=== PATIENT | female | born 1955 | race Caucasian/White ===

== ENCOUNTER 2024-01-18 08:03 | Outpatient (OUT) | payer MEDICARE, SELFPAY ==
[2024-01-18 08:28] LABS: Basophils Percent Auto 0.4 % (0.2-2.0); Eosinophils Absolute Auto 0.1 10^3/uL (0.0-0.7); Eosinophils Percent Auto 2.4 % (0.9-7.0); Hematocrit 41.5 % (36.0-48.0); Hemoglobin 13.3 g/dL (12.0-16.0); Immature Granulocytes Abs Auto 0.01 10^3/uL (0.00-0.03); Immature Granulocytes Pct Auto 0.2 % (0.0-0.5); Lymphocytes Absolute Auto 2.3 10^3/uL (1.2-3.8); Mean Corpuscular Hemoglobin 27.8 pg (26.7-34.0); Mean Corpuscular Volume 86.8 fL (81.0-99.0); Mean Platelet Volume 8.9 fL (9.5-13.5); Monocytes Absolute Auto 0.5 10^3/uL (0.3-0.8); Monocytes Percent Auto 9.2 % (1.7-12.0); Neutrophils Absolute Auto 2.1 10^3/uL (1.4-6.5); Neutrophils Percent Auto 41.8 % (43.0-75.0); Platelet Count 293 10^3/uL (150-450); Red Blood Count 4.78 10^6/uL (4.20-5.40); Red Cell Distribution Width 13.5 % (11.0-15.0)
--- NOTE | 2024-01-18 08:29 | MM_ITS ---
Patient Name: GABBIE LOPEZ MR#: [id number] : 1955 Exam Date: 01/18/2024 Ordering Doctor: DR Lupe Ramos M.D. RADIOLOGY REPORT PROCEDURE: MM TOMOSYNTHESIS SCREENING BI COMPARISON: MG MAMM SCREEN 3D NEY CAD, 01/15/2023. MG MAMM DX 3D RT CAD, 08/28/2021. INDICATIONS: Screening Calculator Name NCI Breast Cancer Risk Assessment Tool 5 Year Breast Cancer Risk 2.10% Lifetime Breast Cancer Risk 6.90% Personal Breast Cancer No Personal Ovarian Cancer No Treatments None Family Cancers Brother with prostate cancer at age ~45; Brother with prostate cancer at age ~45; Brother with prostate cancer at age ~45. LOCATION: [facility] BREAST COMPOSITION: The breasts are heterogeneously dense,which may obscure small masses. FINDINGS: DIAGNOSTIC CATEGORY 0--INCOMPLETE: NEED ADDITIONAL IMAGING EVALUATION. The breasts are stable in size and overall fibroglandular configuration. Scattered benign-appearing calcifications are present. Scattered benign-appearing lymph nodes are present. RIGHT BREAST: New 1.4 x 0.8 cm ill-defined nodular density upper outer quadrant, 9 o'clock position spot imaging and ultrasound follow-up recommended. LEFT BREAST: 3 new ill-defined focal nodules upper outer quadrant measuring 1.1, 1.6 and 0.7 cm in size. Spot imaging and ultrasound follow-up is recommended. RECOMMENDATIONS: ADDITIONAL MAMMOGRAPHIC VIEWS REQUIRED: BILATERAL BREASTS - spot compression views ULTRASOUND: BILATERAL BREASTS PLEASE NOTE: A NORMAL MAMMOGRAM DOES NOT EXCLUDE THE POSSIBILITY OF BREAST CANCER. A CLINICALLY SUSPICIOUS PALPABLE LUMP SHOULD BE BIOPSIED. Dictated by: Brian Regalado MD on 01/18/2024 at 11:17 Approved by: Brian Regalado MD on 01/18/2024 at 11:20
--- NOTE | 2024-01-18 08:29 | XR_ITS ---
[address] [address] Patient Name: GABBIE LOPEZ MRN: [id number] date: 1955 Sex: F Assigned Patient Location: [facility] Current Patient Location: [facility] Accession/Order Number: [id number] Exam Date: 01/18/2024 08:49 Report Date: 01/18/2024 09:21 At the request of: KENNETH FARIAS Procedure: XR DEXA axial skeleton EXAMINATION: XR DEXA axial skeleton, 01/18/2024 8:49 AM EDT HISTORY: Osteoporosis M81.0 COMPARISON: None. TECHNIQUE: Dual-energy X-ray absorptiometry (DEXA) bone density study performed for the axial skeleton. HISTORY: Osteoporosis M81.0 FINDINGS: Bone mineral density AP spine L1-L4 measures 0.779 g/sq cm. T score -3.3. WHO classification: Osteoporosis. Bone mineral density of the bilateral total femurs measures 0.719 g/sq cm. T score -2.3. WHO classification: Osteopenia XR/XR DEXA axial skeleton IMPRESSION: Osteoporosis. High fracture risk Electronically authenticated by: JUAN JOSE FERNANDEZ Date: 01/18/2024 09:21
[2024-01-18 09:07] LABS: Alanine Aminotransferase 43 U/L (14-59); Albumin Level 3.6 g/dL (3.4-5.0); Alkaline Phosphatase 74 U/L (46-116); Anion Gap 12.8; Aspartate Amino Transferase 29 U/L (15-37); BUN Creatinine Ratio 15.8; Calcium 9.3 mg/dL (8.5-10.1); Carbon Dioxide 28.1 mmol/L (21.0-32.0); Chloride 104 mmol/L (98-107); Cholesterol 198 mg/dL (<=200); Estimated GFR (African America >60 (>=60); Estimated GFR (Non-African Ame 58 (>=60); Globulin 3.5 g/dL; Glucose 100 mg/dL (74-106); HDL Cholesterol 67 mg/dL (40-60); Potassium 3.9 mmol/L (3.5-5.1); Sodium 141 mmol/L (136-145); Total Protein 7.1 g/dL (6.4-8.2); Triglycerides 193 mg/dL (<=150); VLDL CHOLESTEROL 38.6 mg/dL
== END 2024-01-18 08:04 | disposition home or self-care (01) ==
LOC: MAMMO 08:03
PROVIDERS: PCP Family Medicine; Visit Provider Family Medicine
DX: Z12.31 Encounter for screening mammogram for malignant neoplasm of breast (principal); M81.0 Age-related osteoporosis without current pathological fracture; E78.5 Hyperlipidemia, unspecified; Z80.42 Family history of malignant neoplasm of prostate; N63.21 Unspecified lump in the left breast, upper outer quadrant; N63.11 Unspecified lump in the right breast, upper outer quadrant
CPT/HCPCS: 36415; 77063; 77067; 77080; 80053; 80061; 85025

== ENCOUNTER 2024-02-05 09:28 | Outpatient (OUT) | payer MEDICARE, SELFPAY ==
--- NOTE | 2024-02-05 09:32 | MM_ITS ---
Patient Name: GABBIE LOPEZ MR#: [id number] : 1955 Exam Date: 02/05/2024 Ordering Doctor: DR Lupe Ramos M.D. RADIOLOGY REPORT PROCEDURE: MM DIAGNOSTIC MAMMO BI, 02/05/2024, 09:39 US BREAST BI LIMITED, 02/05/2024, 10:01 COMPARISON: MM TOMOSYNTHESIS SCREENING BI, 01/18/2024. MG MAMM SCREEN 3D NEY CAD, 01/15/2023. MG MAMM DX 3D RT CAD, 08/28/2021. MG MAMM SCREEN 3D NEY CAD, 07/22/2021. INDICATIONS: Abnormal mammogram R92.8 Calculator Name NCI Breast Cancer Risk Assessment Tool 5 Year Breast Cancer Risk 2.10% Lifetime Breast Cancer Risk 6.90% Personal Breast Cancer No Personal Ovarian Cancer No Treatments None Family Cancers Brother with prostate cancer at age ~45; Brother with prostate cancer at age ~45; Brother with prostate cancer at age ~45. LOCATION: [facility] BREAST COMPOSITION: The breasts are heterogeneously dense,which may obscure small masses. FINDINGS: DIAGNOSTIC CATEGORY 3--PROBABLY BENIGN FINDING. THE FOLLOWING FINDING(S) HAS A HIGH PROBABILITY OF A BENIGN ETIOLOGY: RIGHT BREAST: Spot magnification views demonstrate very subtle opacity within posterior lower-outer quadrant. No specific ultrasound findings. Incidental small lymph node. Follow-up diagnostic mammography and right breast ultrasound in 6 months is recommended to document stability. LEFT BREAST: Spot magnification views demonstrate very subtle opacities within upper-outer quadrant. No specific ultrasound findings. Follow-up diagnostic mammography and right breast ultrasound in 6 months is recommended to document stability. RECOMMENDATIONS: SHORT TERM FOLLOW-UP DIAGNOSTIC MAMMOGRAM BILATERAL BREASTS IN 6 MONTHS. SHORT TERM FOLLOW-UP ULTRASOUND BILATERAL BREASTS IN 6 MONTHS. PLEASE NOTE: A NORMAL MAMMOGRAM DOES NOT EXCLUDE THE POSSIBILITY OF BREAST CANCER. A CLINICALLY SUSPICIOUS PALPABLE LUMP SHOULD BE BIOPSIED. Dictated by: Medardo Chavez M.D. on 02/05/2024 at 10:21 Approved by: Medardo Chavez M.D. on 02/05/2024 at 10:50
== END 2024-02-05 09:29 | disposition home or self-care (01) ==
LOC: MAMMO 09:28
PROVIDERS: PCP Family Medicine; Visit Provider Family Medicine
DX: R92.8 Other abnormal and inconclusive findings on diagnostic imaging of breast (principal); Z80.42 Family history of malignant neoplasm of prostate
CPT/HCPCS: 76642; 77066

== ENCOUNTER 2024-08-17 07:42 | Outpatient (OUT) | payer MEDICARE, SELFPAY ==
--- OUTSIDE RECORDS SUMMARY | 2024-08-17 07:43 | XMS_ITS | CCD ---
Author Organization [facility] Care Team Providers Care Quality Assurance Specialist Name Role Phone DR LUPE RAMOS Admitting Unavailable JARRETT, DR LUPE Todd Attending Unavailable DR MEDARDO CHAVEZ Consulting Unavailable JARRETT, DR LUPE Todd Consulting Unavailable Jeannine Rosales Unavailable Lupe Ramos Unavailable Asaad, Imad Unavailable Lupe Ramos Primary Care Unavailable Asaad, Imad Attending Unavailable Asaad, Imad Admitting Unavailable Medications Current Medications Medication Drug Class(es) Dates Sig (Normalized) Sig (Original) atorvastatin 20 mg oral tablet (6 sources) HMG-CoA Reductase Inhibitor Start: 08-27-2022 take 1 tablet by mouth every twenty-four hours Atorvastatin Calcium 20 MG 1 tablet Orally Once a day for 90 days January, Active buPROPion hydrochloride 100 mg oral tablet (6 sources) Aminoketone Start: 08-27-2022 take 1 tablet by mouth twice daily buPROPion HCl 100mg buPROPion HCL 100mg, 1 tablet two times daily # 180, 08/27/2022, Ref. x1. Active oral two times daily for 0 *Pick strength-form from [place] [employer] for eRX* Jul, Active fluconazole 150 mg oral tablet (1 source) Azole Antifungal Start: 07-24-2023 take 1 tablet by mouth at mealtime, then take 1 tablet by mouth at mealtime Diflucan 150 MG 1 tablet Orally once for 2 days Take the first tablet today by mouth with food, take the second tablet in 3 days with food. Jun, Active ibandronic acid 150 mg oral tablet (6 sources) Bisphosphonate Start: 02-24-2023 take 1 tablet by mouth once daily Ibandronate Sodium 150 MG 1 tablet 60 minutes before the first food, beverage or medicine of the day with plain water Orally for 90 days January, Active Start: 08-27-2022 take 1 tablet by emily th every month ibandronate 150mg ibandronate 150mg, 1 tablet monthly # 3, 08/27/2022, Ref. x1. Active oral monthly for 0 *Reorder from [place] [employer] for eRx and Interaction Alerts* Jul, Active omeprazole 40 mg delayed release oral capsule (2 sources) Proton Pump Inhibitor take 1 capsule by mouth once daily Omeprazole 40 MG 1 capsule 30 minutes before morning meal Orally Once a day for 15 days Active Problems Problem Classification Problem Date Documented Date Episodic/Chronic Abdominal pain (2 sources) Right upper quadrant pain; Translations: [Left upper quadrant pain] Episodic Disorders of lipid metabolism (15 sources) Hyperlipidemia, unspecified; Translations: [Hyperlipidemia] Onset: 01-15-2023 Chronic Miscellaneous mental health disorders (5 sources) Emotional state finding; Translations: [Other symptoms and signs involving emotional state] Episodic Osteoporosis (11 sources) Osteoporosis; Translations: [Age-related osteoporosis without current pathological fracture] Chronic Other and unspecified benign neoplasm (1 source) Polyp of colon Episodic Other female genital disorders (1 source) Other specified noninflammatory disorders of vagina Episodic Other screening for suspected conditions (not mental disorders or infectious disease) (2 sources) Encounter for screening mammogram for malignant neoplasm of breast; Translations: [ENC SCR MAMMO MALIG NEOPLASM BREAST] Onset: 01-19-2023 Episodic Other upper respiratory infections (2 sources) Acute pharyngitis, unspecified Episodic Residual codes; unclassified (1 source) Family history of malignant neoplasm of other organs or systems; Translations: [FAM HX MALIG NEOPLASM OTH ORGN/SYS] Onset: 01-19-2023 Episodic Residual codes; unclassified (5 sources) Tobacco user; Translations: [Tobacco use] Episodic Residual codes; unclassified (5 sources) Normal body mass index; Translations: [Body mass index (BMI) 24.0-24.9, adult] Episodic Unclassified (1 source) Encounter for screening for malignant neoplasm of colon; Translations: [Encounter for screening for malignant neoplasm of colon] Onset: 12-07-2023 Results Test Name Value Interpretation Reference Range Facility [facility] 12-07-2023 L Specimen: [id number] Received: 12/07/23 Status: KAREN Arreaga Num: [id number] Spec Type: Surgical Subm Dr: Phoenix Ortiz MD Tissues: A Colon Biopsy (ASC POLYP) B Colon Biopsy (CECAL POLYP) C Colon Biopsy (SIGMOID POLYPS) Procedures: HE/8, Gross/Micro L4/3 Age/ Patient Sex Location Account Attending Physician JuanGabbie 68/F [id number] Phoenix Ortiz MD SPEC NUM: [id number] RECD: 12/07/23 STATUS: KAREN ARREAGA NUM: [id number] TAYO: 12/07/23- SUBM DR: Phoenix Ortiz MD ENTERED: 12/07/23 [facility] DR: SPEC TYPE: Surgical DEPT: S ORDERED: HE/8, Gross/Micro L4/3 ORDERED: HE/8, Gross/Micro L4/3 Pathological Diagnosis A. Ascending colon, biopsies: - Tubular adenoma with no high-grade dysplasia. B. Cecal polyp, biopsies: - Tubular adenoma with no high-grade dysplasia. C. Sigmoid polyp, biopsies: - Tubular adenoma with no high-grade dysplasia. Clinical Information History of polyps Gross Description A. Received in formalin labeled with the patient's name, date of and ascending colon are three monroy tissues averaging 0.4 x 0.3 x 0.2 cm, admixed with fecal material. Entirely submitted in one cassette labeled A1. B. Received in formalin labeled with the patient's name, date of and cecal polyp is one monroy tissue measuring 0.3 x 0.3 x 0.2 cm. Entirely submitted in one cassette labeled B1. C. Received in formalin labeled with the patient's name, date of and sigmoid polyp Specimen: [id number] Received: 12/07/23 Status: KAREN Arreaga Num: [id number] Spec Type: Surgical Subm Dr: Phoenix Ortiz MD Tissues: A Colon Biopsy (ASC POLYP) B Colon Biopsy (CECAL POLYP) C Colon Biopsy (SIGMOID POLYPS) Procedures: VICENTELeslie Graham/Micro L4/3 Patient: Gabbie Lopez [id number] (Continued) Specimen: [id number] Received: 12/07/23 (Continued) Gross Description (Continued) Signed (signature on file) Tere Islas MD 12/08/23 1135 Specimen: [id number] Received: 12/07/23 Status: KAREN Arreaga Num: [id number] Spec Type: Surgical Subm Dr: Phoenix Ortiz MD Tissues: A Colon Biopsy (ASC POLYP) B Colon Biopsy (CECAL POLYP) C Colon Biopsy (SIGMOID POLYPS) Procedures: VICENTELeslie Graham/Micro L4/3 Patient: Gabbie Lopez [id number] (Continued) Specimen: [id number] Received: 12/07/23 (Continued) Gross Description (Continued) are two monroy tissues measuring 0.6 x 0.5 x 0.3 cm and 1.1 x 0.9 x 0.4 cm, admixed with fecal material. Entirely submitted in one cassette labeled C1. Microscopic Description Microscopic evaluation supports the above rendered diagnosis. CPT Codes 20507n5 Specimen: [id number] Received: 12/07/23 Status: KAREN Arreaga Num: [id number] Spec Type: Surgical Subm Dr: Phoenix Ortiz MD Tissues: A Colon Biopsy (ASC POLYP) B Colon Biopsy (CECAL POLYP) C Colon Biopsy (SIGMOID POLYPS) Procedures: HE/8, Gross/Micro L4/3 Patient: Gabbie Lopez [id number] (Continued) Signed (signature on file) Tere Islas MD 12/08/23 1135 Normal [facility] [employer] 07-24-2023 S. pyogenes Org specific cx Ql (Throat) Negative [employer] Other [employer] [facility] [employer] Other CBC AUTO DIFFon 01-15-2023 BASO # 0.0 103/ul Normal 0.0-0.1 [facility] Comment on above: Performed By: #### C BC #### [facility] [address] [place] [address] Dr. Pete Sibley Basophils/100 WBC (Bld) 0.4 % Normal 0.2-2.0 [facility] Comment on above: Performed By: #### C BC #### [facility] [address] [place] [address] Dr. Pete Sibley EO # 0.2 103/ul Normal 0.0-0.7 [facility] Comment on above: Performed By: #### C BC #### [facility] [address] [place] [address] Dr. Pete Sibley Eosinophils/100 WBC (Bld) 3.5 % Normal 0.9-7.0 [facility] Comment on above: Performed By: #### C BC #### [facility] [address] [place] [address] Dr. Pete Sibley Erythrocyte distribution width (RBC) [Ratio] 14.1 % Normal 11.0-15.0 [facility] Comment on above: Performed By: #### C BC #### [facility] [address] [place] [address] Dr. Pete Sibley Hematocrit (Bld) [Volume fraction] 42.6 % Normal 36.0-48.0 [facility] Comment on above: Performed By: #### C BC #### [facility] [address] [place] [address] Dr. Pete Sibley Hemoglobin (Bld) [Mass/Vol] 13.7 g/dL Normal 12.0-16.0 [facility] Comment on above: Performed By: #### C BC #### [facility] [address] [place] [address] Dr. Pete Sibley IG # 0.01 10e3/ul Normal 0.00-0.03 [facility] Comment on above: Performed By: #### C BC #### [facility] [address] [place] [address] Dr. Pete Sibley IG % 0.2 % Normal 0.0-0.5 [facility] Comment on above: Performed By: #### C BC #### [facility] [address] [place] [address] Dr. Pete Sibley LYMPH # 1.6 103/ul Normal 1.2-3.8 [facility] Comment on above: Performed By: #### C BC #### [facility] [address] [place] [address] Dr. Pete Sibley Lymphocytes/100 WBC (Bld) 32.2 % Normal 20.5-60.0 [facility] Comment on above: Performed By: #### C BC #### [facility] [address] [place] [address] Dr. Pete Sibley MANUAL DIFF REQ NO Normal [facility] Comment on above: Performed By: #### C BC #### [facility] [address] [place] [address] Dr. Pete Sibley MCH (RBC) [Entitic mass] 28.1 pg Normal 26.7-34.0 [facility] Comment on above: Performed By: #### C BC #### [facility] [address] [place] [address] Dr. Pete Sibley MCHC (RBC) [Mass/Vol] 32.2 g/dL Normal 29.9-35.2 [facility] Comment on above: Performed By: #### C BC #### [facility] [address] [place] [address] Dr. Pete Sibley MCV (RBC) [Entitic vol] 87.5 fL Normal 81.0-99.0 [facility] Comment on above: Performed By: #### C BC #### [facility] [address] [place] [address] Dr. Pete Sibley MONO # 0.4 103/ul Normal 0.3-0.8 [facility] Comment on above: Performed By: #### C BC #### [facility] [address] [place] [address] Dr. Pete Sibley Monocytes/100 WBC (Bld) 8.2 % Normal 1.7-12.0 [facility] Comment on above: Performed By: #### C BC #### [facility] [address] [place] [address] Dr. Pete Sibley NEUT # 2.7 103/ul Normal 1.4-6.5 [facility] Comment on above: Performed By: #### C BC #### [facility] [address] [place] [address] Dr. Pete Sibley Neutrophils/100 WBC (Bld) 55.5 % Normal 43.0-75.0 [facility] Comment on above: Performed By: #### C BC #### [facility] [address] [place] [address] Dr. Pete Sibley Platelet mean volume (Bld) [Entitic vol] 8.8 fL Critically low 9.5-13.5 [facility] Comment on above: Performed By: #### C BC #### [facility] [address] [place] [address] Dr. Pete Sibley PLT 294 103/ul Normal 150-450 [facility] Comment on above: Performed By: #### C BC #### [facility] [address] [place] [address] Dr. Pete Sibley RBC 4.87 106/ul Normal 4.20-5.40 [facility] Comment on above: Performed By: #### C BC #### [facility] [address] [place] [address] Dr. Pete Sibley WBC 4.9 103/ul Normal 4.0-11.0 [facility] Comment on above: Performed By: #### C BC #### [facility] [address] [place] [address] Dr. Pete Sibley LIPID PROFILEon 01-15-2023 CHOL-HDL RATIO NORM SEE BELOW Normal [facility] Comment on above: Result Comment: 3.3 - 4.4 LOW RISK 4.4 - 7.1 AVERAGE RISK 7.1 - 11.0 MODERATE RISK >11.0 HIGH RISK Performed By: #### L IPID, CMP #### [facility] [address] [place] [address] Dr. Pete Sibley Cholesterol [Mass/Vol] 166 mg/dL Normal <=200 [facility] Comment on above: Performed By: #### L IPID, CMP #### [facility] [address] [place] [address] Dr. Pete Sibley Cholesterol in HDL [Mass/Vol] 72 mg/dL Critically high 40-60 The [facility] Comment on above: Performed By: #### L IPID, CMP #### [facility] [address] [place] [address] Dr. Pete Sibley Cholesterol in LDL [Mass/Vol] 74.6 mg/dL Normal [facility] Comment on above: Performed By: #### L IPID, CMP #### [facility] [address] [address] [address] Pete Sibley Cholesterol.total/ Cholesterol in HDL [Mass ratio] 2.3 {ratio} Normal [facility] Comment on above: Performed By: #### L IPID, CMP #### [facility] [address] [address] [address] Pete Sibley HDL NORMAL > or = 60 mg/dl - LOW CARDIOVASCULAR RISK <40 mg/dl - HIGH CARDIOVASCULAR RISK Normal [facility] Comment on above: Performed By: #### L IPID, CMP #### [facility] [address] [address] [address] Pete Sibley LDL CALC NORMAL SEE BELOW Normal [facility] Comment on above: Result Comment: <100 mg/dl OPTIMAL 100 - 129 mg/dl NEAR OR ABOVE OPTIMAL 130 - 159 mg/dl BORDERLINE HIGH 160 - 189 mg/dl HIGH >190 mg/dl VERY HIGH Performed By: #### L IPID, CMP #### [facility] [address] [address] [address] Pete Sibley Triglyceride [Mass/Vol] 97 mg/dL Normal <=150 [facility] Comment on above: Performed By: #### L IPID, CMP #### [facility] [address] [address] [address] Pete Sibley VLDL CALC 19.4 mg/dL Normal [facility] Comment on above: Performed By: #### L IPID, CMP #### [facility] [address] [address] [address] Pete Sibley MG MAMM SCREEN 3D NEY CADon 01-15-2023 MG MAMM SCREEN 3D NEY CAD Patient: GABBIE LOPEZ Exam Date: 01/15/2023 : 1955 Gender:F Ordering : DR LUPE RAMOS M.D. Admission #: [id number] Family : Order #: [id number] CLICK HERE TO VIEW EXAM RADIOLOGY REPORT PROCEDURE: MAMMOGRAM SCREENING 3D BILATERAL CAD COMPARISON: MG MAMM DX 3D RT CAD, 08/28/2021. MG MAMM SCREEN 3D NEY CAD, 07/22/2021. INDICATIONS: Screening mammography Calculator Name NCI Breast Cancer Risk Assessment Tool 5 Year Breast Cancer Risk 2.10% Lifetime Breast Cancer Risk 7.20% Personal Breast Cancer No Personal Ovarian Cancer No Treatments None Family Cancers Brother with prostate cancer at age 45; Brother with prostate cancer at age 45; Brother with prostate cancer at age 45. LOCATION: [facility] BREAST COMPOSITION: Heterogeneously dense,which may obscure small masses. FINDINGS: DIAGNOSTIC CATEGORY 1--NEGATIVE. RIGHT BREAST: No significant suspicious finding. No significant change has occurred. LEFT BREAST: No significant suspicious finding. No significant change has occurred. RECOMMENDATIONS: ROUTINE MAMMOGRAM AND CLINICAL EVALUATION IN 12 MONTHS. PLEASE NOTE: A NORMAL MAMMOGRAM DOES NOT EXCLUDE THE POSSIBILITY OF BREAST CANCER. A CLINICALLY SUSPICIOUS PALPABLE LUMP SHOULD BE BIOPSIED. Dictated by: Medardo Chavez M.D. on 01/15/2023 at 14:33 Approved by: Medardo Chavez M.D. on 01/15/2023 at 14:36 Normal [facility] PROF 14(COMP METB)on 023 Albumin [Mass/Vol] 3.8 g/dL Normal 3.4-5.0 [facility] Comment on above: Performed By: #### L IPID, CMP #### [facility] [address] [address] [address] Pete Sibley Albumin/Globulin [Mass ratio] 1.1 {ratio} Normal [facility] Comment on above: Performed By: #### L IPID, CMP #### [facility] [address] [address] [address] Pete Sibley ALP [Catalytic activity/Vol] 55 U/L Normal 46-116 [facility] Comment on above: Performed By: #### L IPID, CMP #### [facility] [address] [address] [address] Pete Sibley ALT [Catalytic activity/Vol] 44 U/L Normal 14-59 [facility] Comment on above: Performed By: #### L IPID, CMP #### [facility] [address] [address] [address] Pete Sibley Anion gap [Moles/Vol] 10.4 mmol/L Normal [facility] Comment on above: Performed By: #### L IPID, CMP #### [facility] [address] [address] [address] Pete Sibley AST [Catalytic activity/Vol] 30 U/L Normal 15-37 [facility] Comment on above: Performed By: #### L IPID, CMP #### [facility] [address] [address] [address] Pete Sibley Bilirubin [Mass/Vol] 1.0 mg/dL Normal 0.2-1.0 [facility] Comment on above: Performed By: #### L IPID, CMP #### [facility] [address] [address] [address] Pete Sibley Calcium [Mass/Vol] 9.0 mg/dL Normal 8.5-10.1 [facility] Comment on above: Performed By: #### L IPID, CMP #### [facility] [address] [place] [address] Dr. Pete Sibley Chloride [Moles/Vol] 107 mmol/L Normal 98-107 [facility] Comment on above: Performed By: #### L IPID, CMP #### [facility] [address] [place] [address] Dr. Pete Sibley CO2 [Moles/Vol] 29.5 mmol/L Normal 21.0-32.0 [facility] Comment on above: Performed By: #### L IPID, CMP #### [facility] [address] [place] [address] Dr. Pete Sibley Creatinine [Mass/Vol] 0.91 mg/dL Normal 0.55-1.02 [facility] Comment on above: Performed By: #### L IPID, CMP #### [facility] [address] [place] [address] Dr. Pete Sibley EGFR-AF CHILEAN >60 Normal >=60 [facility] Comment on above: Performed By: #### L IPID, CMP #### [facility] [address] [address] [address] Pete Sibley EGFR-NON AF CHILEAN >60 Normal >=60 [facility] Comment on above: Performed By: #### L IPID, CMP #### [facility] [address] [address] [address] Pete Sibley Globulin (S) [Mass/Vol] 3.6 g/dL Normal [facility] Comment on above: Performed By: #### L IPID, CMP #### [facility] [address] [address] [address] Pete Sibley Glucose [Mass/Vol] 91 mg/dL Normal 74-106 [facility] Comment on above: Performed By: #### L IPID, CMP #### [facility] [address] [place] [address] Dr. Pete Sibley Potassium [Moles/Vol] 3.9 mmol/L Normal 3.5-5.1 [facility] Comment on above: Performed By: #### L IPID, CMP #### [facility] [address] [place] [address] Dr. Pete Sibley Protein [Mass/Vol] 7.4 g/dL Normal 6.4-8.2 [facility] Comment on above: Performed By: #### L IPID, CMP #### [facility] [address] [place] [address] Dr. Pete Sibley Sodium [Moles/Vol] 143 mmol/L Normal 136-145 [facility] Comment on above: Performed By: #### L IPID, CMP #### [facility] [address] [place] [address] Dr. Pete Sibley Urea nitrogen [Mass/Vol] 9.0 mg/dL Normal 7.0-18.0 [facility] Comment on above: Performed By: #### L IPID, CMP #### [facility] [address] [place] [address] Dr. Pete Sibley Urea nitrogen/Creatinin e [Mass ratio] 9.9 mg/mg Normal [facility] Comment on above: Performed By: #### L IPID, CMP #### [facility] [address] [place] [address] Dr. Pete Sibley Vital Signs Date Time Vital Sign Value Performing Clinician Facility 02-02-2024 10:00-0500 Body height 160.02 cm Lupe Ramos Other [employer] Other 10-30-2023 10:00-0500 Body mass index (BMI) [Ratio] 24.19 kg/m2 Lupe Ramos Other [employer] Other 10-30-2023 10:00-0500 Body weight 61.96 kg Lupe Ramos Other [employer] Other 10-30-2023 10:00-0500 Diastolic blood pressure 76 mm[Hg] Lupe Ramos Other [employer] Other 10-30-2023 10:00-0500 Systolic blood pressure 119 mm[Hg] Lupe Ramos Other [employer] Other 09-24-2023 15:00-0500 Body height 160.02 cm Lupe Ramos Other [employer] Other 09-24-2023 15:00-0500 Body mass index (BMI) [Ratio] 23.91 kg/m2 Lupe Ramos Other [employer] Other 09-24-2023 15:00-0500 Body weight 61.24 kg Lupe Ramos Other [employer] Other 09-24-2023 15:00-0500 Diastolic blood pressure 83 mm[Hg] Lupe Ramos Other [employer] Other 09-24-2023 15:00-0500 Systolic blood pressure 144 mm[Hg] Lupe Ramos Other [employer] Other 07-24-2023 10:00-0400 Body height 160.02 cm Jeannine Rosales Other [employer] Other 07-24-2023 10:00-0400 Body mass index (BMI) [Ratio] 24.44 kg/m2 Jeannine Rosales Other [employer] Other 07-24-2023 10:00-0400 Body temperature 97.6 [degF] Jeannine Rosales Other [employer] Other 07-24-2023 10:00-0400 Body weight 62.6 kg Jeannine Rosales Other [employer] Other 07-24-2023 10:00-0400 Diastolic blood pressure 94 mm[Hg] Jeannine Rosales Other [employer] Other 07-24-2023 10:00-0400 Respiratory rate 18 /min Jeannine Rosales Other [employer] Other 07-24-2023 10:00-0400 SaO2% (BldA) [Mass fraction] 98 % Jeannine Rosales Other [employer] Other 07-24-2023 10:00-0400 Systolic blood pressure 144 mm[Hg] Jeannine Rosales Other [employer] Other Encounters Encounter Date Encounter Type Care Provider Facility Start: 12-07-2023 End: 12-07-2023 ambulatory Lupe Ramos Facility:[facility] Start: 10-30-2023 End: 10-30-2023 ambulatory Lupe Ramos Other [employer] Other Start: 10-30-2023 Office outpatient vi sit 15 minutes Lupe Ramos [facility] Start: 10-26-2023 End: 10-26-2023 ambulatory Imad Asaad Other [employer] Other Start: 10-26-2023 Telephone encounter Phoenix Ortiz [employer] Start: 09-24-2023 End: 09-24-2023 ambulatory Lupe Ramos Other [employer] Other Start: 09-24-2023 Patient encounter procedure Lupe APONTE [facility] Start: 07-24-2023 End: 07-24-2023 ambulatory Jeannine Rosales Other [employer] Other Start: 07-24-2023 Office outpatient vi sit 15 minutes Jeannine Rosales [facility] Start: 01-15-2023 End: 01-16-[address] LUPE RAMOS Facility:[facility] Procedures Date Procedure Procedure Detail Performing Clinician Screening for malign ant neoplasm of breast Jeannine Rosales Other Payers Date Payer Category Payer Self-pay 1959 Medicare [id number] 1959 Private Health Insurance CLI [id number] 1955 Unknown [id number] Medicare [id number] 2.1 [id number] Unknown [id number] Social History Date Type Detail Facility Unknown if ever smoked [employer] Other Sex Assigned At Sex Assigned At Bir th [employer] Other Evaluation note 10-30-2023 Note Date & Type Note Facility 10-30-2023 Evaluation note Encounter Date Diagnosis Assessment Notes Oct, RUQ pain (ICD-10 - R10.11) Discussed differential and anatomy of the RUQ. Will trial PPI for 1-2 weeks and call w results. If pain continues, consider CT or EGD [employer] Other Evaluation note 10-30-2023 Note Date & Type Note Facility 10-30-2023 Evaluation note Encounter Date Diagnosis Assessment Notes Oct, LUQ pain (ICD-10 - R10.12) as listed below Oct, Other Discussed differential and anatomy of the RUQ. Will trial PPI for 1-2 weeks and call w results. If pain continues, consider CT or EGD [employer] Other Evaluation note 09-24-2023 Note Date & Type Note Facility 09-24-2023 Evaluation note Encounter Date Diagnosis Assessment Notes Aug, Medicare annual wellness visit, subsequent (ICD-10 - Z00.00) Personalized health advice was given to the beneficiary including a written plan for screenings discussed and provided. Advanced care planning reviewed and/or information given as requested. Additional counseling was provided here today in regards to, [ ]. The above visit was performed by [ ], under direct supervision of [ ]. Document reviewed and amended by provider signed below. Aug, Osteoporosis, unspecified osteoporosis type, unspecified pathological fracture presence (ICD-10 - M81.0) Aug, Encounter for screening mammogram for malignant neoplasm of breast (ICD-10 - Z12.31) Aug, Hyperlipidemia, unspecified (ICD-10 - E78.5) due for labs. Aug, Polyp of colon, unspecified part of colon, unspecified type (ICD-10 - K63.5) requests GI referral [employer] Other Evaluation note 07-24-2023 Note Date & Type Note Facility 07-24-2023 Evaluation note Encounter Date Diagnosis Assessment Notes Jun, Sore throat (ICD-10 - J02.9) Jun, Pharyngitis, unspecified etiology (ICD-10 - J02.9) Pharyngitis/ton sillopharyngiti s: adult home care material was printed Drink plenty fluids, get plenty of rest. Take Tylenol or Motrin as needed for aches pains or fevers. Take the Diflucan as prescribed until gone for your vaginal itching. If no improvement in the itching and 5 to 7 days, contact your acupuncture physician for reevaluation. Consider drinking warm tea with honey for comfort for your throat. Run a coolmist humidifier at your bedside. Follow-up with your family physician if no improvement in the sore throat in 2 to 3 days Jun, Vaginal itching (ICD-10 - N89.8) [employer] Other History general Narrative - Reported 08-27-2022 Note Date & Type Note Facility 08-27-2022 History general N arrative - Reported Type Medical History Problem Title : Anxi ety/Depression, Problem Status : Active,, Medical History Problem Title : Depr ession, Problem Comment : [employer] 08/27/2022, Problem Status : Active,, Medical History Problem Title : HYPE RLIPIDEMIA, Problem Status : Active,, Medical History Problem Title : OSTE OPOROSIS, Problem Status : Active,, Surgical History Problem Title : Rhin oplasty, Problem Comment : [employer] 08/27/2022, Problem Status : Active, [employer] Other Evaluation note Note Date & Type Note Facility Evaluation note No Information [employer] Other History general Narrative - Reported Note Date & Type Note Facility History general Narrative - Reported Type Medical History Anxiety/Depression Medical History HYPERLIPIDEMIA Medical History OSTEOPOROSIS Surgical History Rhinoplasty [employer] Other Summary Purpose Family History No Family History Records FoundNo Family History Records Found Advance Directives No Advanced Directives Records FoundNo Advanced Directives Records Found Reason for Referral Reason Followup from [facility] since moving here. hx of polyps. Diagnosis 1 Polyp of colon, unsp ecified part of colon, unspecified type (K63.5) Referral Organization [facility] Referring Provider First Name Lupe Referring Provider Last Name Jarrett Referring Provider Specialty Family Medi cine Referred Organization [facility] Referred Address [address] [address] ,[place], [place],[address] Referred Provider Specialty Gastroentero logy Referral Priority Routine Additional Source Comments INFORMATION SOURCE (unrecogn ized section and content) DATE CREATED AUTHOR 01/20/2023 [facility] DATE CREATED AUTHOR AUTHOR'S ORGANIZ ATION 12/17/2023 [facility] REASON FOR VISIT (unrecogniz ed section and content) SORE THROATwelllnesspainsMAI L PPWpains FOR RECORDS PERTAINING TO PATIENTS WHO ARE OR HAVE BEEN ENROLLED IN A CHEMICAL DEPENDENCY/SUBSTANCEABUSE PROGRAM, SOME INFORMATION MAY BE OMITTED. This clinical summary was aggregated from multiple sources. Caution should be exercised in using it in the provision of clinical care. This summary normalizes information from multiple sources, and as a consequence, information in this document may materially change the coding, format and clinical context of patient data. In addition, data may be omitted in some cases. CLINICAL DECISIONS SHOULD BE BASED ON THE PRIMARY CLINICAL RECORDS. [facility] [employer] [facility]. provides no warranty or guarantee of the accuracy or completeness of information in this document.
--- NOTE | 2024-08-17 07:45 | MM_ITS ---
Patient Name: GABBIE LOPEZ MR#: [id number] : 1955 Exam Date: 08/17/2024 Ordering Doctor: DR Lupe Ramos M.D. RADIOLOGY REPORT PROCEDURE: MM TOMOSYNTHESIS DIAGNOSTIC BI COMPARISON: MM TOMOSYNTHESIS SCREENING BI, 01/18/2024. MM DIAGNOSTIC MAMMO BI, 02/05/2024. INDICATIONS: Abnormal Mammogram Calculator Name NCI Breast Cancer Risk Assessment Tool 5 Year Breast Cancer Risk 2.20% Lifetime Breast Cancer Risk 6.60% Personal Breast Cancer No Personal Ovarian Cancer No Treatments None Family Cancers Brother with prostate cancer at age ~45; Brother with prostate cancer at age ~45; Brother with prostate cancer at age ~45. LOCATION: [facility] BREAST COMPOSITION: The breasts are heterogeneously dense,which may obscure small masses. FINDINGS: DIAGNOSTIC CATEGORY 2--BENIGN FINDING. NO CHANGE FROM COMPARISON. Scattered benign-appearing calcifications are present. Scattered benign-appearing lymph nodes are present. RIGHT BREAST: No significant suspicious finding. LEFT BREAST: No significant suspicious finding. RECOMMENDATIONS: ROUTINE MAMMOGRAM AND CLINICAL EVALUATION IN 12 MONTHS. PLEASE NOTE: A NORMAL MAMMOGRAM DOES NOT EXCLUDE THE POSSIBILITY OF BREAST CANCER. A CLINICALLY SUSPICIOUS PALPABLE LUMP SHOULD BE BIOPSIED. Dictated by: Brian Regalado MD on 08/17/2024 at 08:13 Approved by: Brian Regalado MD on 08/17/2024 at 08:16
== END 2024-08-17 07:43 | disposition home or self-care (01) ==
LOC: MAMMO 07:42
PROVIDERS: PCP Family Medicine; Visit Provider Family Medicine
DX: R92.8 Other abnormal and inconclusive findings on diagnostic imaging of breast (principal); Z80.42 Family history of malignant neoplasm of prostate
CPT/HCPCS: 77066; G0279